=== PATIENT | female | born 1990 | race Hispanic/Latino ===

== ENCOUNTER 2020-08-05 08:20 | Inpatient (IN) | payer MEDICAID, OTHER, SELFPAY ==
[2020-08-05 09:20] VITALS: BMI 24.8
[2020-08-05] MEDS ORDERED: hydrALAZINE 20 MG/ML VIAL SLOW IVP PRN ×2 (09:24→10:51)
[2020-08-05] MEDS ORDERED: Carboprost 250 MCG/ML AMP IM PRN (10:51)
[2020-08-05] MEDS ORDERED: Methylergonovine 0.2 MG/ML VIAL IM PRN (10:51)
[2020-08-05] MEDS ORDERED: Lidocaine 1% (PF) 30 ML VIAL SC PRN (10:51)
[2020-08-05] MEDS ORDERED: Misoprostol 200 MCG TAB PR PRN (10:51)
[2020-08-05] MEDS ORDERED: Promethazine HCl 25 MG/ML VIAL IM PRN (10:51)
[2020-08-05] MEDS ORDERED: Ondansetron PF 4 MG/2 ML Vial IVP PRN (10:51)
[2020-08-05] MEDS ORDERED: Ibuprofen 800 MG TAB PO PRN (10:51)
[2020-08-05] MEDS ORDERED: NS w/ Oxytocin 30 units 500 ML ONE (10:52)
[2020-08-05] MEDS ORDERED: Lidocaine 1% (PF) 30 ML VIAL ONE (10:52)
[2020-08-05] MEDS ORDERED: NS w/ Oxytocin 30 units 500 ML IVPB PRN (11:03)
[2020-08-05 11:14] LABS: #Monocytes 0.6 10x3/uL (0.0-1.1); #Neutrophils 7.7 10x3/uL (1.5-8.4); %Basophils 0.2 % (0.0-2.0); %Eosinophils 0.2 % (0.0-6.0); %Lymphocytes 17.2 % (18.0-47.0); %Monocytes 5.9 % (0.0-10.0); %Neutrophils 76.2 % (40.0-75.0); Hemoglobin 12.6 g/dL (12.0-15.5); Mean Corpuscular HGB CONC 34.1 g/dL (32.0-36.0); Mean Corpuscular Hemoglobin 32.6 pg (27.0-33.0); Mean Corpuscular Volume 95.6 fl (81.6-98.3); Mean Platelet Volume 11.9 fl (7.4-10.4); Platelet Count 155 10x3/uL (150-450); RBC Distribution Width 12.6 % (11.5-14.5); Red Blood Cell (RBC) Count 3.86 10x6/uL (3.90-5.03); White Blood Cell (WBC) Count 10.1 10x3/uL (3.5-10.5)
[2020-08-05] MEDS ORDERED: NS w/ Oxytocin 30 units 500 ML IVPB SCH ×2 (11:15→17:30)
[2020-08-05 12:17] LABS: Hep B Surf Ag Non-Reactive S/CO (NonReactive)
[2020-08-05 12:18] LABS: Syphilis Antibody Nonreactive (Nonreactive); Syphilis Antibody Index 0.03 S/CO (<1.00 Non-Reactive)
[2020-08-05 12:32] LABS: HBSAg Index 0.17 S/CO (0-0.99)
[2020-08-05] MEDS ORDERED: Misoprostol 200 MCG TAB ONE (15:37)
[2020-08-05] MEDS ORDERED: Milk Of Magnesia 30 ML UDCUP PO PRN (16:45)
[2020-08-05] MEDS ORDERED: Bisacodyl 10 MG SUPP PR PRN (16:45)
[2020-08-05] MEDS ORDERED: Adacel (T-DAP) 0.5 ML SYRINGE IM ONE (16:45)
[2020-08-05] MEDS ORDERED: Benzocaine-Menthol 82.5 ML CAN TOP PRN (16:45)
[2020-08-05] MEDS ORDERED: Ferrous Sulfate 325 MG TAB PO SCH (17:30)
[2020-08-05] MEDS: Ibuprofen 800 MG TAB PO SCH (21:28)
[2020-08-05] MEDS: Docusate Calcium (SURFAK) 240 MG CAP PO SCH (21:28)
[2020-08-06] MEDS: Ibuprofen 800 MG TAB PO SCH ×2 (05:05→14:12)
[2020-08-06 06:52] LABS: Hemoglobin 12.1 g/dL (12.0-15.5); Mean Corpuscular HGB CONC 33.7 g/dL (32.0-36.0); Mean Corpuscular Hemoglobin 32.5 pg (27.0-33.0); Mean Corpuscular Volume 96.5 fl (81.6-98.3); Mean Platelet Volume 11.9 fl (7.4-10.4); Platelet Count 148 10x3/uL (150-450); RBC Distribution Width 12.5 % (11.5-14.5); Red Blood Cell (RBC) Count 3.72 10x6/uL (3.90-5.03); White Blood Cell (WBC) Count 9.8 10x3/uL (3.5-10.5)
[2020-08-06] MEDS: Ferrous Sulfate 325 MG TAB PO SCH ×2 (08:41→18:00)
[2020-08-06] MEDS: Docusate Calcium (SURFAK) 240 MG CAP PO SCH (08:41)
[2020-08-06 12:07] VITALS: TEMP 97.8
[2020-08-06 14:49] LABS: SARS-CoV-2 PCR by NAA Not Detected (NotDetected)
[2020-08-06 16:30] VITALS: BP 119/83
== END 2020-08-06 18:15 | disposition home or self-care (01) | DRG 807 ==
LOC: CSHLD/OP 08:20 → CSHLD 16:19 → CSHPP 17:45
PROVIDERS: ADMIT Student in an Organized Health Care Education/Training Program; ATTEND Student in an Organized Health Care Education/Training Program
PROC: 10E0XZZ Delivery of Products of Conception, External Approach (ICD-10-PCS; principal; 2020-08-05)
DX: O45.93 Premature separation of placenta, unspecified, third trimester (principal); Z37.0 Single live birth; Z20.822 Contact with and (suspected) exposure to COVID-19; O99.02 Anemia complicating childbirth; D64.9 Anemia, unspecified; Z3A.38 38 weeks gestation of pregnancy
CPT/HCPCS: 36415; 76815; 76819; 85025; 85384; 86780; 86850; 86900; 86901; 87340; 87635; 88307; J2001; J2590; U0003; U0005